=== PATIENT | male | born 1965 | race Two or more races ===

== ENCOUNTER 2020-01-03 21:19 | Emergency (ER) | payer SELFPAY ==
--- NOTE | 2020-01-03 23:53 | ER Document Report ---
ED Fever - General Chief Complaint: Fever Stated Complaint: FEVER, HEADACHE, MUSCLE PAIN WHOLE BODY, DIARRHEA Time Seen by Provider: 01/03/20 23:41 Notes: Patient is a 54-year-old male that comes emergency department for chief complaint of several days of symptoms including weakness, body aches, joint aches, and low-grade fevers. He states today his fever reached 102 F with continued symptoms. He denies shortness of breath, cough, chest pain, bowel pain, nausea, vomiting, diarrhea, sore throat, headache. He states he is taking ibuprofen and paracetamol at home. He denies any surgeries, he denies any daily medications, he denies smoking, alcohol, or recreational drugs. He denies any recent travel or obvious sick contacts. - Related Data Allergies/Adverse Reactions: No Known Allergies Allergy (Verified 01/04/20 00:00) Past Medical History - General Information source: Patient - Social History Smoking Status: Never Smoker Frequency of alcohol use: None Drug Abuse: None Lives with: Family Family History: Reviewed & Not Pertinent - Medical History Medical History: Negative Surgical Hx: Negative Review of Systems - Review of Systems Constitutional: See HPI EENT: No symptoms reported Cardiovascular: No symptoms reported Respiratory: No symptoms reported Gastrointestinal: No symptoms reported Genitourinary: No symptoms reported Male Genitourinary: No symptoms reported Musculoskeletal: See HPI Skin: No symptoms reported Hematologic/Lymphatic: No symptoms reported Neurological/Psychological: No symptoms reported Physical Exam - Vital signs Vitals: Temp Pulse Resp BP Pulse Ox 99.2 F 98 20 132/76 H 99 01/03/20 21:28 01/03/20 21:28 01/03/20 21:28 01/03/20 21:28 01/03/20 21:28 - Notes Notes: GENERAL: Alert, interacts well. No acute distress. Talkative and well-appearing HEAD: Normocephalic, atraumatic. EYES: Pupils equal, round, and reactive to light. Extraocular movements intact. ENT: Oral mucosa moist, tongue midline. Oropharynx unremarkable. Airway patent. Nares patent, sinuses non-tender, ear canals unremarkable, TM's intact. NECK: Full range of motion. Supple. Trachea midline. No lymphadenopathy. LUNGS: Clear to auscultation bilaterally, no wheezes, rales, or rhonchi. No respiratory distress. Non-tender chest wall. HEART: Regular rate and rhythm. No murmur ABDOMEN: Soft, non-tender. Non-distended. EXTREMITIES: Moves all 4 extremities spontaneously. No edema, normal radial and dorsalis pedis pulses bilaterally. No cyanosis. BACK: no cervical, thoracic, lumbar midline tenderness. No saddle anesthesia, normal distal neurovascular exam. Moves all extremities in full range of motion. NEUROLOGICAL: Alert and oriented x3. Normal speech. Cranial nerves II through XII grossly intact. Strength 5/5 in all extremities. PSYCH: Normal affect, normal mood. SKIN: Warm, dry, normal turgor. No rashes or lesions noted. Course - Re-evaluation Re-evalutation: Patient declined a stove installer, he requested we use the stove installer elizabeth on his phone, this was surprisingly excellent and worked very well. Patient is actually very well-appearing, smiling, talkative, no nuchal rigidity, clear lungs, soft abdomen, unremarkable vital signs. CBC, chemistry, urinalysis unremarkable. Chest x-ray however shows very well-defined right middle lobe pneumonia which appears bacterial by appearance. Blood cultures are pending. Patient has been given Rocephin and azithromycin here. I discussed with patient. He ambulates without hypoxia or any dyspnea, he does not have any reported risk factors, at this time it seems appropriate that patient can be discharged with treatment for community-acquired pneumonia and we will test him for COVID-19 as well. He will quarantine, I discussed this in detail. I discussed return precautions at length. Patient requests medications be very affordable therefore he was provided with azithromycin and amoxicillin in combination because of this. Discussed primary care follow-up and patient states that he will return if he worsens in any way. Stable and well-appearing at time of discharge. - Vital Signs Vital signs: Temp Pulse Resp BP Pulse Ox 99.0 F 89 18 131/78 H 99 01/04/20 03:00 01/04/20 03:00 01/04/20 03:00 01/04/20 03:00 01/04/20 03:00 - Laboratory Result Diagrams: 01/04/20 00:30 01/04/20 00:30 Laboratory results interpreted by me: 01/03/20 01/04/20 01/04/20 23:00 00:30 00:30 Plt Count 137 L ALT 61 H Urine Blood SMALL H Discharge - Discharge Clinical Impression: Fever Qualifiers: Fever type: unspecified Qualified Code(s): R50.9 - Fever, unspecified Pneumonia Qualifiers: Pneumonia type: due to unspecified organism Laterality: right Lung location: middle lobe of lung Qualified Code(s): J18.9 - Pneumonia, unspecified organism Condition: Stable Disposition: HOME, SELF-CARE Additional Instructions: You have pneumonia. I think that this is bacterial and you have been prescribed antibiotics for this. Please rest, take the antibiotics until they are gone, take Tylenol and ibuprofen if you need to for your fever and body aches. Drink plenty of fluids. There is still a chance this is the coronavirus. You have been tested for this and we will call you with these results in about 2 to 3 days. Please avoid other people until we tell you if your test is positive, we will call you and tell you what to do if your test is positive. Follow-up with primary care. Come back to the emergency department if you are worse including difficulty breathing, passing out, or any other concerning symptoms. Tiene neumona. Creo que esto es bacteriano y le traore recetado antibiticos para esto. Por favor descanse, tome los antibiticos hasta que se acaben, tome Tylenol e ibuprofeno si lo necesita para sanchez fiebre y danny corporales. Beber mucho lquido. Todava existe la posibilidad de que juan manuel sea el coronavirus. Gaona sido examinado para esto y lo llamaremos con estos resultados en aproximadamente 2 a 3 ahuja. Evite a otras personas hasta que le digamos si sanchez prueba es positiva, lo llamaremos y le diremos qu hacer si sanchez prueba es positiva. Seguimiento con atencin primaria. Regrese a la katarzyna de emergencias si est peor, roman dificultad para respirar, desmayo o cualquier otro sntoma preocupante. Prescriptions: Amoxicillin Trihydrate [Amoxil 500 mg Capsule] 1,000 mg PO BID 10 Days #40 capsule Azithromycin [Zithromax 250 mg Tablet] 250 mg PO ASDIR PRN #4 tablet PRN Reason: Forms: Return to Work
[2020-01-04 00:46] LABS: APPEARANCE,URINE CLEAR; BILIRUBIN,URINE NEGATIVE (NEGATIVE); COLOR,URINE YELLOW; GLUCOSE, URINE NEGATIVE (NEGATIVE); KETONES,URINE NEGATIVE (NEGATIVE); LEUKOCYTE ESTERASE,URINE NEGATIVE (NEGATIVE); NITRITE,URINE NEGATIVE (NEGATIVE); PROTEIN,URINE NEGATIVE (NEGATIVE); URINE SPECIFIC GRAVITY 1.016; UROBILINOGEN,URINE NEGATIVE mg/dL (<2.0)
--- NOTE | 2020-01-04 00:48 | RADIOLOGY REPORT (SQ) ---
EXAM DESCRIPTION: XR CHEST 1 VIEW COMPLETED DATE/TME: 01/03/2020 23:52 CLINICAL HISTORY: 54 years Male fever, weakness COMPARISON: None. FINDINGS: The cardiomediastinal silhouette appears unremarkable. Consolidating infiltrate in the right lung base which may be within the right middle lobe laterally. Findings suggest pneumonia. Left lung appears clear. No pneumothorax. IMPRESSION: Findings suggesting pneumonia in the right middle lobe.
[2020-01-04 00:49] LABS: ABSOLUTE LYMPHOCYTES (AUTO) 1.2 10^3/uL (0.5-4.7); ABSOLUTE MONOCYTES (AUTO) 0.6 10^3/uL (0.1-1.4); ABSOLUTE NEUT (AUTO) 4.6 10^3/uL (1.7-8.2); BASOPHILS % (AUTO) 0.2 % (0-2); EOSINOPHILS % (AUTO) 0.3 % (0-6); HEMATOCRIT 42.5 % (37.9-51.0); HEMOGLOBIN 14.4 g/dL (13.5-17.0); LYMPHOCYTES % (AUTO) 18.7 % (13-45); MEAN CORPUSCULAR HEMOGLOBIN 29.9 pg (27.0-33.4); MEAN CORPUSCULAR VOLUME 88 fl (80-97); PLATELET COUNT 137 10^3/uL (150-450); RED BLOOD COUNT 4.84 10^6/uL (4.35-5.55); RED CELL DISTRIBUTION WIDTH 13.2 % (11.5-14.0); SEGMENTED NEUTROPHILS % (AUTO) 70.8 % (42-78); TOTAL CELLS COUNTED % (AUTO) 100 %; WHITE BLOOD COUNT 6.4 10^3/uL (4.0-10.5)
[2020-01-04 01:01] LABS: ALBUMIN 3.9 g/dL (3.5-5.0); ALKALINE PHOSPHATASE 76 U/L (38-126); ANION GAP 10 (5-19); ASPARTATE AMINO TRANSFERASE 39 U/L (17-59); BILIRUBIN,DIRECT 0.3 mg/dL (0.0-0.4); BILIRUBIN,TOTAL 0.4 mg/dL (0.2-1.3); BLOOD UREA NITROGEN 15 mg/dL (7-20); CALCIUM 8.5 mg/dL (8.4-10.2); CARBON DIOXIDE 25 mmol/L (22-30); CHLORIDE 104 mmol/L (98-107); GLUCOSE 103 mg/dL (75-110); TOTAL PROTEIN 6.7 g/dL (6.3-8.2)
[2020-01-04] MEDS ORDERED: CEFTRIAXONE 1 GM/D5W RTU 1 GM/50 ML RTUPB IV ONE (01:13)
[2020-01-04] MEDS ORDERED: AZITHROMYCIN 250 MG TABLET PO ONE (01:14)
[2020-01-04 03:29] VITALS: BP 131/78
== END 2020-01-04 03:31 | disposition home or self-care (01) ==
LOC: ER 21:19
DX: U07.1 COVID-19 (principal); J18.9 Pneumonia, unspecified organism; R50.9 Fever, unspecified; R53.1 Weakness; M25.50 Pain in unspecified joint; M79.10 Myalgia, unspecified site
CPT/HCPCS: 99284; 96365; 36415; 87040; 85025; 87635; 80053; 81001; 71045; J0696; C9803